=== PATIENT | female | born 1980 | race Two or more races ===

== ENCOUNTER 2017-02-28 06:53 | Day surgery (SDC) | payer OTHER ==
[2017-02-26 12:12] LABS: Basophils # (auto) 0.1 uL; Eosinophils # (auto) 0.2 uL; Eosinophils % (auto) 1.9 % (0.0-7.0); Hematocrit 37.7 % (36.0-46.0); Hemoglobin 12.7 g/dL (12.2-16.2); Lymphocytes # (auto) 2.5 uL; Lymphocytes % (auto) 31.1 % (10.0-50.0); Mean Corpuscular Hemoglobin 31.2 pg (28.0-32.0); Mean Corpuscular Hgb Conc. 33.8 g/dL (32.0-36.0); Mean Corpuscular Volume 92.4 fL (80.0-100.0); Mean Platelet Volume 9.3 fL (6.9-10.8); Monocytes # (auto) 0.4 uL; Monocytes % (auto) 4.5 % (0.0-12.0); Neutrophils % (auto) 61.5 % (37.0-80.0); Platelet Count (auto) 305 10^3/uL (140-450); Red Cell Distribution Width 14.1 % (11.8-14.3); White Blood Cell 8.1 10^3/uL (4.4-10.8)
[2017-02-26 12:17] LABS: Urine Bilirubin Negative (Negative); Urine Blood 2+ /uL (Negative); Urine Color Yellow (Yellow); Urine Glucose Normal (Normal); Urine Ketone Negative (Negative); Urine Mucus FEW (None Seen); Urine Nitrite Negative (Negative); Urine RBC 2 /hpf (0 - 4); Urine Squamous Epithelial Cell FEW /hpf (<5); Urine Urobilinogen Normal (Negative)
[2017-02-26 12:41] LABS: INR 0.96 (0.9-1.15); Partial Thromboplastin Time 23.2 sec (22.64-33.71); Prothrombin Time 10.5 sec (9.37-12.3)
[2017-02-26 15:29] LABS: Bilirubin, Total 0.3 mg/dL (0.2-1.0); Calcium 8.5 mg/dL (8.5-10.1); Potassium 3.4 mmol/L (3.5-5.1); Total Protein 7.8 g/dL (6.4-8.2)
[2017-02-26 15:44] LABS: BUN/Creatinine Ratio 15.3
[~2017-02-28] VITALS: Ht 154.9 cm; Wt 49.9 kg
[2017-02-28] MEDS ORDERED: ceFAZolin 1GM/50ML D5W 50 ML IV ONE (07:39)
[2017-02-28] MEDS ORDERED: BUPIVACAINE 0.25% INJ 50ML VIAL ONE (08:27)
[2017-02-28] MEDS ORDERED: MIDAZOLAM HCL 1MG/1ML-2 ML VIAL ONE (08:39)
[2017-02-28] MEDS ORDERED: fentaNYL CITRATE 100 MCG/2 ML VL ONE (08:39)
[2017-02-28] MEDS ORDERED: PROPOFOL 10 MG/ML 20 ML IV ONE (08:42)
[2017-02-28] MEDS ORDERED: KETOROLAC TROMETH 30 MG/ML 1ML VIAL IV ONE (09:15)
[2017-02-28] MEDS ORDERED: fentaNYL CITRATE 100 MCG/2 ML VL IV PRN (09:15)
[2017-02-28] MEDS ORDERED: ONDANSETRON HCL 4 MG/2 ML VIAL IV ONE (09:15)
[2017-02-28] MEDS ORDERED: HYDROmorphone HCL 2 MG/ML VL IV PRN (09:15)
[2017-02-28] MEDS ORDERED: hydrALAZINE HCL 20 MG/ML VL IV PRN (09:15)
[2017-02-28] MEDS ORDERED: ONDANSETRON HCL 4 MG/2 ML VIAL ONE (09:18)
[2017-02-28] MEDS ORDERED: METOCLOPRAMIDE HCL 5MG/ml INJ 2ml VIAL ONE (09:18)
[2017-02-28 10:00] VITALS: BP 106/71
== END 2017-02-28 10:10 | disposition home or self-care (01) ==
LOC: SUR 06:53
PROVIDERS: ATTEND Surgery
DX: D17.21 Benign lipomatous neoplasm of skin and subcutaneous tissue of right arm (principal); Z98.51 Tubal ligation status; D69.6 Thrombocytopenia, unspecified
CPT/HCPCS: 25075; 36415; 80053; 81001; 84702; 85025; 85610; 85730; 88305; J0690; J2250; J2405; J2704; J2765; J3010; J3490